=== PATIENT | male | born 1970 | race Caucasian/White ===

== ENCOUNTER 2024-08-05 10:25 | Day surgery (SDC) | payer OTHER ==
[2024-08-05 10:53] VITALS: TEMP 97.4
[2024-08-05] MEDS: LACTATED RINGERS 1,000 ML BAG IV STA (11:04)
[2024-08-05] MEDS: IV FLUID CONTINUATION 1,000 ML IV ONE (11:05)
[2024-08-05 11:06] LABS: Glucose,Whole Blood 107 mg/dL (70-110)
[2024-08-05] MEDS ORDERED: LIDOCAINE 1% INJ 10MG/ML (20 ML MDV) ONE (11:39)
[2024-08-05] MEDS ORDERED: PROPOFOL 10 MG/ML 20 ML VIAL IV ONE (11:39)
[2024-08-05] MEDS: SODIUM CHLORIDE 0.9% 500 ML 500 ML IV ONE (12:18)
--- NOTE | 2024-08-05 12:30 | P.PCN ---
Date of Procedure: 08/05/24 Procedure(s) Performed: BRIEF HISTORY: Patient is a 53-year-old pleasant white male scheduled for an elective colonoscopy as a part of screening for colon cancer. His father was diagnosed with colon cancer at age 60. PROCEDURE PERFORMED: Colonoscopy with snare polypectomy, tattooing with Chnaa ink and biopsy. PREOPERATIVE DIAGNOSIS: Screening for colon cancer and family history of colon cancer. IV sedation per Anesthesia. PROCEDURE: After informed consent was obtained, the patient, was brought into the endoscopy unit. IV sedation was administered by Anesthesia under continuous monitoring. Digital rectal examination was normal. Initially the Olympus CF-160 flexible video colonoscope was then inserted in the rectum, gradually advanced into the cecum without any difficulty. Careful examination was performed as the scope was gradually being withdrawn. Ileocecal valve and the appendiceal orifice were visualized and appeared normal. Prep was excellent. Mucosa of the cecum, ascending colon, appeared normal. The hepatic flexure there was a circumferential ulcerated mass identified and multiple biopsies were done from this area followed by tattooing with Chana ink. In the mid transverse colon there was a 2 cm and a 3 cm polyp removed by snare polypectomy. In the splenic flexure at 70 cm from the anal verge there was a 3.5 cm broad-based polyp that was removed by piecemeal snare polypectomy and complete polypectomy accomplished. Tattooing was performed with Chana ink of this polyp. The sigmoid colon appeared normal. In the proximal rectum at 10 cm from the anal verge there was a 4 to 5 cm round large polyp identified and this was removed completely with snare polypectomy.. Retroflexion was performed in the rectum and no lesions were seen. The patient tolerated the procedure well. IMPRESSION: Circumferential ulcerated mass in the hepatic flexure status post multiple b iopsies followed by tattooing with Chana ink 3 cm and 2 cm broad-based mid transverse colon polyp status post snare polypectomy 3.5 cm broad-based splenic flexure polyp status post snare polypectomy followed by tattooing with Chana ink and complete polypectomy accomplished 4 to 5 cm round polyp in the proximal rectum at 12 cm from the anal verge status post snare polypectomy and almost complete polypectomy accomplished RECOMMENDATIONS: Findings of this examination were discussed with the patient as well as his family. He was advised to to follow with the biopsy results and he will be seen in the office in 1 week. In the meantime he will be scheduled for CT of the abdomen and pelvis..
[2024-08-05 12:39] VITALS: RESP 18
[2024-08-05 12:51] VITALS: BP 121/76; PULSE 76
== END 2024-08-05 13:22 | disposition home or self-care (01) ==
LOC: ORWHC2ENDO 10:25
PROVIDERS: ATTEND Internal Medicine Gastroenterology
DX: C18.3 Malignant neoplasm of hepatic flexure (principal); D12.3 Benign neoplasm of transverse colon; D12.8 Benign neoplasm of rectum; I10 Essential (primary) hypertension; E78.5 Hyperlipidemia, unspecified; E11.9 Type 2 diabetes mellitus without complications; Z79.84 Long term (current) use of oral hypoglycemic drugs; Z79.899 Other long term (current) drug therapy; Z80.0 Family history of malignant neoplasm of digestive organs
CPT/HCPCS: 88305; 88342; 88341; 45380; 45385; 45381; J2003; J2704; 44404

== ENCOUNTER → 2024-08-07 | Outpatient (CLI) | payer OTHER ==
[2024-08-07 15:48] LABS: African American GFR (CKD) >90 (>60 ml/min/1.73 sqM); Blood Urea Nitrogen 15 mg/dL (9-20); Non-African American GFR(CKD) >90 (>60 ml/min/1.73 sqM)
--- NOTE | 2024-08-07 17:51 | CT ---
EXAMINATION TYPE: CT abdomen pelvis w con CT DLP: 1785.7 mGycm, Automated exposure control for dose reduction was used. DATE OF EXAM: 08/07/2024 5:00 PM COMPARISON: None CLINICAL INDICATION:Male, 53 years old with history of K63.89 OTHER DISEASES OF INTESTINE; Mass of ri ght colic flexure. TECHNIQUE: Standard CT of the abdomen and pelvis following the administration of 100 cc of Isovue 3 00 IV contrast material and oral contrast. Coronal and sagittal reformats were performed. FINDINGS: LOWER CHEST: Visualized lung bases are clear. Elevation of the right hemidiaphragm. ABDOMEN LIVER: Right hepatic dome ill-defined subcentimeter lesion (series 3, image 12). Anterior left hepati c lobe subcentimeter lesion which is too small characterize (series 3, image 23). Ill-defined hypoden se left hepatic lobe lesion grossly measuring 1.9 cm (series 3, image 31). GALLBLADDER AND BILE DUCTS: Unremarkable. PANCREAS: Unremarkable. SPLEEN: Unremarkable. ADRENAL GLANDS: Unremarkable. KIDNEYS AND URETERS: No evidence of hydronephrosis or renal calculus. The kidneys enhance symmetrical ly. Contrast is demonstrated within both collecting systems and proximal ureters on the delayed phase . PELVIS BLADDER: Unremarkable REPRODUCTIVE: Coarse calcifications of the prostate gland are identified. ABDOMEN & PELVIS STOMACH AND BOWEL: Stomach and duodenum are unremarkable. Enteric contrast reaches the distal small b owel which limits evaluation. There is some circumferential wall thickening of the hepatic flexure wi th wall thickening measuring up to 0.7 cm over a length of 4.7 cm (series 3, image 35). The appendix is not visualized and may be surgically absent. No evidence of bowel obstruction. PERITONEUM: No evidence of pneumoperitoneum or free fluid. VASCULATURE: No evidence of aortic aneurysm. MUSCULOSKELETAL: No acute osseous abnormalities. Degenerative changes of the right SI joint with ante rior bridging. No aggressive osseous lesions. Multilevel anterior osteophytosis of the visualized tho racolumbar spine. LYMPH NODES: No evidence for lymphadenopathy. SOFT TISSUE/ABDOMINAL WALL: Unremarkable IMPRESSION: 1. Circumferential wall thickening of the hepatic flexure likely corresponding to reported mass. 2. Few small indeterminate hypodense lesions within the liver. Metastasis is not excluded. Further ev aluation with MR abdomen liver mass protocol is recommended. [facility], , 08/07/2024 5:49 PM
== END | disposition home or self-care (01) ==
LOC: RADCTMAIN 14:29
PROVIDERS: ATTEND Internal Medicine Gastroenterology
DX: K63.89 Other specified diseases of intestine (principal)
CPT/HCPCS: 82565; 84520; 74177; 36415; Q9967

== ENCOUNTER → 2024-08-29 | Outpatient (CLI) | payer OTHER ==
--- NOTE | 2024-08-29 17:53 | MR ---
EXAMINATION TYPE: MR liver wo/w con DATE OF EXAM: 08/29/2024 10:48 AM INDICATION: Patient age:Male; 53 years old; Reason for study: K76.9 LIVER DISEASE, UNSPECIFIED; PHH. COMPARISON: CT abdomen and pelvis 08/07/2024 TECHNIQUE: Multiplanar multi-sequence imaging was performed without and with IV contrast. The patien t was given 10 ccs of Gadobutrol intravenously and dynamic imaging was performed. Post IV contrast dumont btraction images were also submitted for review. FINDINGS: LOWER CHEST: No gross irregularity. ABDOMEN Liver: Noncirrhotic morphology. Segment V 2.1 cm irregular mild T2 hyperintense lesion which is somew hat ill-defined. This demonstrates perilesional enhancement on postcontrast imaging (series 601, imag e 53). Segment III 2.2 cm irregular mild T2 hyperintense lesion which is somewhat ill-defined. Demons trates perilesional enhancement on postcontrast imaging (series 601, image 29). Additional segment II I 0.9 cm mild T2 hyperintense lesion just anterior. Demonstrates perilesional enhancement on postcont rast imaging (series 601, image 31). Segment II 0.5 cm moderately T2 hyperintense lesion correspondin g to prior CT (series 601, image 38). No enhancement. This is favored to represent a cyst. None of th aron lesions demonstrate enhancement consistent with a hemangioma. Gallbladder and Bile ducts: Unremarkable. Pancreas: Unremarkable. Spleen: Unremarkable. Adrenal glands: Unremarkable. Kidneys: Unremarkable. Stomach and Bowel: No evidence for obstruction. There is a focal region of wall thickening identified within the hepatic flexure corresponding to prior CT (series 301, image 21). Peritoneum: No evidence of pneumoperitoneum, free fluid, or adenopathy. Vasculature: Unremarkable. No aortic aneurysm. Abdominal wall: Unremarkable. Musculoskeletal: The osseous structures appear intact. IMPRESSION: 1. There are 3 hepatic mild T2 hyperintense lesions with perilesional enhancement on postcontrast im aging. These are suspicious for metastasis. Additional subcentimeter left hepatic lobe T2 hyperintens e lesion is favored to represent a cyst. 2. Focal region of wall thickening involving the hepatic flexure likely representing reported mass. [facility], , 08/29/2024 5:50 PM
== END | disposition home or self-care (01) ==
LOC: RADMRIMAIN 09:49
PROVIDERS: ATTEND Internal Medicine Gastroenterology
DX: K76.9 Liver disease, unspecified (principal)
CPT/HCPCS: 74183; A9585

== ENCOUNTER → 2024-09-10 | Outpatient (CLI) | payer OTHER ==
[2024-09-10 16:19] LABS: African American GFR (CKD) >90 (>60 ml/min/1.73 sqM); Blood Urea Nitrogen 19 mg/dL (9-20); Non-African American GFR(CKD) >90 (>60 ml/min/1.73 sqM)
--- NOTE | 2024-09-10 17:00 | CT ---
EXAMINATION TYPE: CT chest w con DATE OF EXAM: 09/10/2024 4:50 PM COMPARISON: Previous CT study dated 08/07/2024 and MRI liver study [id number] CLINICAL INDICATION: Male, 53 years old with history of C18.3 COLON CANCER; PHH, R/O mets, Colon Ca. TECHNIQUE: Multiple axial images were obtained through the chest. Sagittal and coronal reformats were created for review. MIP was performed on a separate workstation. Contrast used:100ml mL of Isovue [address] DLP: 513.0 mGycm, Automated exposure control for dose reduction was used. FINDINGS: LUNGS/ PLEURA: The lung parenchyma appears unremarkable. AIRWAY: Patent and unremarkable. HEART: Size within normal limits. MEDIASTINUM: No gross evidence of adenopathy. VASCULATURE: No aortic aneurysm. MUSCULOSKELETAL: No acute osseous abnormalities SOFT TISSUES/LYMPH NODES: Unremarkable. LOWER NECK: No significant findings. UPPER ABDOMEN: No significant acute findings. Partially visualized abnormal wall thickening of the la rge bowel near the hepatic flexure. Similar hypodense liver lesions compared to previous CT study [facility] 08/07/2024, subsequently described as suspicious for metastatic disease on MRI 10-18. IMPRESSION: 1. No evidence of metastatic disease in the chest. 2. Multiple hypodense liver lesions, similar to recent study 08/07/2024 suspicious for metastatic dis ease when compared to subsequent MRI liver study dated 08/29/2024. [facility], , 09/10/2024 4:58 PM
== END | disposition home or self-care (01) ==
LOC: RADCTMAIN 15:20
PROVIDERS: ATTEND Internal Medicine Hematology & Oncology
DX: C18.3 Malignant neoplasm of hepatic flexure (principal); K76.89 Other specified diseases of liver
CPT/HCPCS: 82565; 84520; 71260; 36415; Q9967

== ENCOUNTER 2024-09-14 07:05 | Day surgery (SDC) | payer OTHER ==
[~2024-09-14 07:05] MED LIST: Pre Op ABX Message 1 EACH MISC MISCELLANE ONE
[2024-09-14] MEDS ORDERED: HYDROmorphone 0.5 MG/0.5 ML SYRINGE IVP PRN (07:14)
[2024-09-14] MEDS ORDERED: fentaNYL (PF) 50 MCG/ML 2 ML AMP IVP PRN (07:14)
[2024-09-14] MEDS ORDERED: LIDOCAINE 1% (10MG/ML) FOR IV START INTRADERMA PRN (07:14)
[2024-09-14] MEDS ORDERED: MIDAZOLAM 2 MG/2 ML VIAL IV PRN (07:14)
[2024-09-14] MEDS: LACTATED RINGERS 1,000 ML IV SCH (07:50)
[2024-09-14] MEDS: IV FLUID CONTINUATION 1,000 ML IV ONE (07:50)
[2024-09-14 07:56] VITALS: RESP 16
[2024-09-14] MEDS: ONDANSETRON 4 MG/2 ML VIAL IVP ONE (07:57)
[2024-09-14] MEDS: DEXAMETHASONE SOD PHOSPHATE 4 MG/ML 1 ML VIAL IV ONE (07:57)
[2024-09-14] MEDS: ACETAMINOPHEN TAB 500 MG TAB PO PRN (07:57)
[2024-09-14] MEDS: HEPARIN SODIUM,PORCINE 5,000 UNIT/ML 1 ML VIAL SQ PRN (07:58)
[2024-09-14 08:02] LABS: Glucose,Whole Blood 110 mg/dL (70-110)
--- NOTE | 2024-09-14 09:09 | P.GSHP ---
History of Present Illness H&P Date: 09/14/24 Chief Complaint: Metastatic colon cancer 53-year-old male recently found to have metastatic colon cancer with liver lesions present. We were asked to see this patient for Port-A-Cath placement. Has an appointment tomorrow with a liver surgeon apparently. Unsure when they are going to use his catheter. Past Medical History Past Medical History: Cancer, Diabetes Mellitus, Hyperlipidemia, Hypertension, Skin Disorder Additional Past Medical History / Comment(s): healing wound where toe was removed, colon ca History of Any Multi-Drug Resistant Organisms: None Reported Past Surgical History: Orthopedic Surgery Additional Past Surgical History / Comment(s): debridement right big toe, right big toe amputated for infection, colonoscopy Past Anesthesia/Blood Transfusion Reactions: No Reported Reaction Smoking Status: Never smoker Medications and Allergies Home Medications Medication Instructions Recorded Confirmed Type Atorvastatin [Lipitor] 40 mg PO DAILY 08/04/24 09/14/24 History Cinnamon Bark [Cinnamon] 500 mg PO DAILY 08/04/24 09/14/24 History Doxycycline [Vibramycin] 100 mg PO BID 08/04/24 09/14/24 History Empagliflozin [Jardiance] 10 mg PO DAILY 08/04/24 09/14/24 History amLODIPine [Norvasc] 10 mg PO DAILY 08/04/24 09/14/24 History cefuroxime axetiL [Ceftin] 500 mg PO Q12H 08/04/24 09/14/24 History lisinopriL [Zestril] 40 mg PO DAILY 08/04/24 09/14/24 History metFORMIN HCL [Glucophage] 1,000 mg PO BID 08/04/24 09/14/24 History Allergies Allergy/AdvReac Type Severity Reaction Status Date / Time No Known Allergies Allergy Verified 09/14/24 07:22 Surgical - Exam Vital Signs Temp Pulse Resp BP Pulse Ox 98.4 F 92 16 143/69 98 09/14/24 07:30 09/14/24 07:30 09/14/24 07:30 09/14/24 07:30 09/14/24 07:30 Physical exam: General: Well-developed, well-nourished HEENT: Normocephalic, sclerae nonicteric Abdomen: Nontender, nondistended Extremities: No edema Neuro: Alert and oriented Assessment and Plan (1) Metastatic colon cancer to liver Narrative/Plan: 53-year-old male with colon cancer. Will proceed with Port-A-Cath placement at this time. Risks of bleeding, infection, DVT, pneumothorax, catheter malfunction, anesthesia related complications were discussed. The patient understands and wishes to proceed. Current Visit: Yes Status: Acute Code(s): C18.9 - MALIGNANT NEOPLASM OF COLON, UNSPECIFIED; C78.7 - SECONDARY MALIG NEOPLASM OF LIVER AND INTRAHEPATIC BILE DUCT SNOMED Code(s): 7506855993
[2024-09-14] MEDS ORDERED: LIDOCAINE 1% INJ 10MG/ML (20 ML MDV) ONE (09:16)
[2024-09-14] MEDS ORDERED: PROPOFOL 10 MG/ML 20 ML VIAL IV ONE (09:16)
[2024-09-14] MEDS ORDERED: MIDAZOLAM 2 MG/2 ML VIAL ONE (09:16)
[2024-09-14] MEDS ORDERED: PHENYLEPHRINE-0.9% NACL SYG 1,000 MCG/10 ML SYRINGE ONE (09:16)
[2024-09-14] MEDS ORDERED: fentaNYL (PF) 50 MCG/ML 2 ML AMP ONE (09:16)
[2024-09-14] MEDS: ceFAZolin 1,000 MG VIAL IVPB ONE ×2 (09:20→09:48)
[2024-09-14] MEDS: BUPIVACAINE (PF) 0.25% 30 ML VIAL SQ ONE (09:48)
[2024-09-14] MEDS ORDERED: HYDROcodone/APAP 5-325MG 1 EACH TAB PO PRN (10:18)
[2024-09-14] MEDS ORDERED: NALOXONE 0.4 MG/ML 1 ML VIAL IV PRN (10:18)
--- NOTE | 2024-09-14 10:22 | P.OP ---
Date of Procedure: 09/14/24 Procedure(s) Performed: PREOPERATIVE DIAGNOSIS: Colon cancer POSTOPERATIVE DIAGNOSIS: Same PROCEDURE: Port-A-Cath placement with fluoroscopic and ultrasound guidance SURGEON: Jose EBL: 5 cc ANESTHESIA: General COMPLICATIONS: None OPERATIVE PROCEDURE: Patient was brought and placed on the operative table in the supine position. The patient was placed under general anesthesia at that time. The chest and neck were prepped and draped in usual sterile fashion. The ultrasound probe was used to identify the location of the right internal jugular vein. The skin was localized with lidocaine. The Seldinger needle was advanced into the IJ under ultrasound guidance. The wire was advanced through the needle under fluoroscopic guidance into the superior vena cava. A port pocket was created in the right infraclavicular location. The catheter was tunneled from the wire entrance site to the port pocket. The port was then connected to the catheter. The dilator introducer was threaded over the guidewire. The guidewire and dilator were then removed. The catheter was advanced through the introducer and introducer was then removed. The tip was seen to be in the right atrial junction via fluoroscopy. A picture of the radiograph showing the tip of the catheter was taken. Port was flushed with both saline and a Hep-Lock solution. There was good flow both in and out of the port. The port was sutured in underlying tissues using 3-0 silk sutures. The subcutaneous tissues were reapproximated using 3-0 Vicryl sutures and the skin at both locations using 4-0 Monocryl sutures. Skin glue and sterile dressings then applied. DISPOSITION: Stable to recovery room
[2024-09-14 10:27] VITALS: TEMP 97.1
--- NOTE | 2024-09-14 10:30 | FL ---
EXAMINATION TYPE: FL guided central line placemt DATE OF EXAM: 09/14/2024 10:11 AM COMPARISON: Pre Operative Images if available both CT/MRI or plain film CLINICAL INDICATION: Male, 53 years old with history of PORTACATH INSERTION; TECHNIQUE: FL guided central line placemt, multiple fluoroscopic images provided for procedure. DAP: 0.8988 mGym2 Gycm2 uGym2 cGycm2 or equivalent. FINDINGS: Fluoroscopic imaging for Port-A-Cath insertion no evidence for pneumothorax. Multilevel degeneration changes of the spine. IMPRESSION: 1. No evidence for intraoperative complication. 2. Please see the operative/procedural note for further details. [facility], , 09/14/2024 10:28 AM
[2024-09-14 10:42] LABS: Glucose,Whole Blood 111 mg/dL (70-110)
--- NOTE | 2024-09-14 10:46 | XR ---
EXAMINATION TYPE: XR chest 1V confirm line plcmt DATE OF EXAM: 09/14/2024 10:42 AM COMPARISON: None CLINICAL INDICATION: Male, 53 years old with history of Check Line placement; TECHNIQUE: XR chest 1V confirm line plcmt Frontal view of the chest. FINDINGS: Lungs/Pleura: There is no evidence of pleural effusion, focal consolidation, or pneumothorax. Pulmonary vascularity: Unremarkable. Heart/mediastinum: Cardiomediastinal silhouette is unremarkable. Musculoskeletal: No acute osseous pathology. Other findings: None Lines/Tubes: Lhpfou-a-Maam projecting over the right hemithorax with distal tip at the cavoatrial junction. IMPRESSION: No acute cardiopulmonary disease/process. [facility], , 09/14/2024 10:44 AM
[2024-09-14 11:16] VITALS: BP 132/79; PULSE 88
== END 2024-09-14 11:30 | disposition home or self-care (01) ==
LOC: OR 07:05
PROVIDERS: ATTEND Surgery
DX: C78.5 Secondary malignant neoplasm of large intestine and rectum (principal); Z45.2 Encounter for adjustment and management of vascular access device; E11.9 Type 2 diabetes mellitus without complications; E78.5 Hyperlipidemia, unspecified; I10 Essential (primary) hypertension; Z79.84 Long term (current) use of oral hypoglycemic drugs
CPT/HCPCS: 77001; 36561; C1788; J2250; J1644; J1100; J2405; J0690; J2003; J3010; J1642; J2704; J2371; J0665